=== PATIENT | female | born 1945 | race Two or more races ===

== ENCOUNTER 2025-05-25 20:13 | Emergency (ER) | payer OTHER, MEDICAID ==
[~2025-05-25] VITALS: Ht 162.6 cm; Wt 91.0 kg
[2025-05-25 20:18] VITALS: BP 160/84; RESP 15; TEMP 98.8; O2SAT 99
--- NOTE | 2025-05-25 20:49 | ED.PDOC ---
History of Present Illness HPI Comments 79-year-old female with a history of diabetes brought in by ambulance and accompanied by daughter for the chief complaint of nausea, diarrhea with the associated nonproductive dry cough, epigastric abdominal pain, and mild shortness of breath. Patient states the she had a prior event dentist visit and was prescribed antibiotics and has since felt the onset of her symptoms. EMS noted patient stated she was short of breath, but with sat on 99% rare. Patient denies any vomiting, headache, blurry vision, or any other associated symptoms, modifiers at this time. PHYSICAL EXAM: General: Awake, alert and oriented. No acute distress. Skin: Skin in warm, dry and intact. Appropriate color for ethnicity. HEENT: The head is normocephalic and atraumatic. Conjunctivae are clear without exudates or hemorrhage. Sclera is non-icteric. EOM are intact. No signs of nystagmus. Eyelids are normal in appearance without swelling or lesions. Oral mucosa is pink and moist Neck: The neck is supple with normal range of motion. No JVD. Cardiac: Heart rate and rhythm are normal. No murmurs, gallops, or rubs are auscultated. Respiratory: No signs of respiratory distress. Lung sounds are clear in all lobes bilaterally without rales, rhonchi, or wheezes. Abdominal: Abdomen is soft, Bowel sounds are present and normoactive in all four quadrants. Tenderness to palpitation to epigastric region. Extremities: Upper and lower extremities are atraumatic in appearance without deformity or edema. Neurological: The patient is awake, alert and oriented to person, place, and time with normal speech. Speech is clear. There is no facial asymmetry. Psychiatric: Appropriate mood and affect. Good judgement and insight. REVIEW OF SYSTEMS: General: No fever, no chills, or fatigue HEENT: No sore throat, no earache, no congestion, no neck pain. Cardiac: No chest pain. No palpitations. Lungs: Cough, shortness of breath GI: + nausea, no vomiting, + diarrhea, no constipation, abdominal pain : No dysuria, frequency, or urgency. No hematuria. Musculoskeletal: No joint pain , no joint swelling, no extremity edema. Skin: No rash, no itching. Neuro: No headache, no dizziness, no weakness Chief Complaint: Flu like Time Seen by MD: 20:45 Reviewed Notes: Nurses Notes, Raw Stock Machine Loader Notes, Medications, Allergies Allergies: Coded Allergies: Codeine (Verified Allergy, Unknown, 05/25/25) Gabapentin (Verified Allergy, Unknown, 05/25/25) Morphine (Verified Allergy, Unknown, 05/25/25) Penicillins (Verified Allergy, Unknown, 05/25/25) Information Source: Patient, Emergency Med Personnel Mode of Arrival: EMS Severity: Moderate Timing: Days Duration: Intermittent, Days Prehospital treatment: 12 Lead EKG, Accucheck, Surface Grinder Tender Was a procedure done? Was a procedure done?: No EKG EKG : Pulse Rate (adult): 84 [place]: Normal Cardiac Rhythm: NSR Block: None Hypertrophy: None ST: Normal Differential Dx Considerations may include: Differential diagnoses considered include: Abdominal aortic aneurysm, NC, esophageal rupture, intestinal obstruction, mesenteric ischemia, perforated viscus or solid organ rupture, CHF with hepatomegaly, pneumonia, abscess, appendicitis, biliary disease, diverticulitis, gastritis, gastroenteritis, hepatitis, hernia, inflammatory bowel disease, pancreatitis, peptic ulcer disease, urinary tract infection, ureteral colic, constipation, GERD, irritable syndrome, abdominal wall pain, nonspecific abdominal pain, herpes zoster, nephrolithiasis. X-Ray, Labs, Meds, VS Vital Signs Date Time Temp Pulse Resp B/P (MAP) Pulse Ox O2 Delivery O2 Flow Rate FiO2 05/25/25 21:09 84 05/25/25 20:18 98.8 84 15 160/84 99 98.8 Lab Test 05/25/25 21:30 05/25/25 21:19 Range/Units Influenza Type A Antigen Negative Negative Influenza Type B Antigen Negative Negative SARS-CoV-2 Antigen (Rapid) Positive NEGATIVE White Blood Count 8.1 4.4-10.8 10^3/uL Red Blood Count 4.71 4.0-5.20 10^6/uL Hemoglobin 14.1 12.2-16.2 g/dL Hematocrit 40.9 36.0-46.0 % Mean Corpuscular Volume 87.0 80.0-100.0 fL Mean Corpuscular Hemoglobin 30.0 28.0-32.0 pg Mean Corpuscular Hemoglobin Concent 34.5 32.0-36.0 g/dL Red Cell Distribution Width 14.1 11.8-14.3 % Platelet Count 427 140-450 10^3/uL Mean Platelet Volume 7.4 6.9-10.8 fL Neutrophils (%) (Auto) 60.0 37.0-80.0 % Lymphocytes (%) (Auto) 21.3 10.0-50.0 % Monocytes (%) (Auto) 14.2 H 0.0-12.0 % Eosinophils (%) (Auto) 4.1 0.0-7.0 % Basophils (%) (Auto) 0.4 0.0-2.0 % Neutrophils # (Auto) 4.9 1.6-8.6 10 ^3/uL Lymphocytes # (Auto) 1.7 0.4-5.4 10 ^3/uL Monocytes # (Auto) 1.2 0-1.3 10 ^3/uL Eosinophils # (Auto) 0.3 0-0.8 10 ^3/uL Basophils # (Auto) 0 0-0.2 10 ^3/uL Nucleated Red Blood Cells 0.1 % Sodium Level 128 L 136-145 mmol/L Potassium Level 3.8 3.5-5.1 mmol/L Chloride Level 93 L 98-107 mmol/L Carbon Dioxide Level 27 20-31 mmol/L Anion Gap 8 5-15 Blood Urea Nitrogen 6 L 9-23 mg/dL Creatinine 0.67 0.550-1.02 mg/dL Glomerular Filtration Rate Calc 90 >90 mL/min BUN/Creatinine Ratio 9.0 L 10.0-20.0 Serum Glucose 113 H 74-106 mg/dL Calcium Level 9.0 8.7-10.4 mg/dL Total Bilirubin 0.4 0.2-1.0 mg/dL Aspartate Amino Transferase (AST) 26 13-40 U/L Alanine Aminotransferase (ALT) 27 7-40 U/L Alkaline Phosphatase 128 H 46-116 U/L Troponin I High Sensitivity < 3 L </=34 ng/L Total Protein 6.9 5.7-8.2 g/dL Albumin 4.6 3.2-4.8 g/dL Lipase 63 H 12-53 U/L Time of 1ST Reevaluation: 21:15 Reevaluation 1ST: Unchanged Patient Education/Counseling: Need For Follow Up Family Education/Counseling: Need For Follow Up SEPSIS Sepsis Screen Date sepsis recognized/suspect: May 25, 2025 Time Sepsis recognized/suspect: 2015 Recent Procedure: No On Antibiotic Therapy: Yes Respiratory Rate >20: No Heart Rate >90: No Temp<36 C (96.8 F) or >38.3 C: No SBP <90 or MAP <65 mmHG: No New Acute Mental Status Change: No Is the patient on CPAP, BIPAP,: No Physician Orders Urinalysis (05/25/25 20:44) Saline Lock (05/25/25 23:04) Free Water Restriction (05/25/25 23:05) Vital Signs Date Time Temp Pulse Resp B/P (MAP) Pulse Ox O2 Delivery O2 Flow Rate FiO2 05/25/25 21:09 84 05/25/25 20:18 98.8 84 15 160/84 99 98.8 Laboratory Tests Test 05/25/25 21:19 White Blood Count 8.1 10^3/uL (4.4-10.8) Departure 1 Departure Time of Disposition: 23:05 Impression: Primary Impression: Hyponatremia Disposition: ADMITTED INPATIENT Condition: Stable Critical Care Note Critical Care Time?: No Stability Stability form required: No Heart Score Heart Score: Heart Score Response (Comments) Value History N/A 0 EKG N/A 0 Age N/A 0 Risk Factors N/A 0 Troponin N/A 0 Total 0 I personally scribed for DION FIGUEROA MD ([email or web address]) on 05/25/25 at 20:49. Electronically submitted by Clement Shah ([email or web address]). I personally scribed for DION FIGUEROA MD ([email or web address]) on 05/25/25 at 21:09. Electronically submitted by Clement Shah ([email or web address]). DION FIGUEROA MD May 25, 2025 20:49
[2025-05-25 21:09] VITALS: PULSE 84
[2025-05-25 21:38] LABS: Hematocrit 40.9 % (36.0-46.0); Hemoglobin 14.1 g/dL (12.2-16.2); Mean Corpuscular Hemoglobin 30.0 pg (28.0-32.0); Mean Corpuscular Volume 87.0 fL (80.0-100.0); Nucleated Red Blood Cells % 0.1 %
[2025-05-25 21:55] LABS: Alanine Aminotransferase 27 U/L (7-40); Albumin 4.6 g/dL (3.2-4.8); Anion Gap 8 (5-15); BUN/Creatinine Ratio 9.0 (10.0-20.0); Bilirubin, Total 0.4 mg/dL (0.2-1.0); Calcium 9.0 mg/dL (8.7-10.4); Carbon Dioxide 27 mmol/L (20-31); Potassium 3.8 mmol/L (3.5-5.1); Total Protein 6.9 g/dL (5.7-8.2)
[2025-05-25 21:56] LABS: Alkaline Phosphatase 128 U/L (46-116); Blood Urea Nitrogen 6 mg/dL (9-23); Chloride 93 mmol/L (98-107); Glucose 113 mg/dL (74-106); Lipase 63 U/L (12-53); Sodium 128 mmol/L (136-145)
[2025-05-25 22:55] LABS: COVID19 ANTIGEN SOFIA FIA POSITIVE (NEGATIVE)
--- NOTE | 2025-05-26 03:30 | ECG ---
[facility] Test Date: 2025-05-25 Test Time: 21:06:28 Pat Name: NIDA ESCAMILLA Department: Room: Gender: F Prepress Manager: : [id number] Requested By: DION FIGUEROA Order Number: [id number] Reading MD: Mendel Reed Measurements Intervals [place] Rate: 84 P: 37 FL: 149 QRS: -22 QRSD: 99 T: 26 QT: 377 QTc: 446 Interpretive Statements Sinus rhythm Borderline left axis deviation Low voltage, precordial leads Abnormal R-wave progression, late transition Nonspecific T abnormalities, anterior leads Electronically Signed On 05-31-2025 17:49:37 PDT by Mendel Reed Please click the below link to view image of tracing.
== END 2025-05-26 03:06 | disposition left against medical advice (07) ==
LOC: ER 20:13 → EDBD 20:13 → ER 05-26 03:06
DX: P74.22 Hyponatremia of newborn (principal); Z88.0 Allergy status to penicillin; Z88.5 Allergy status to narcotic agent; Z79.899 Other long term (current) drug therapy; Z20.822 Contact with and (suspected) exposure to COVID-19
CPT/HCPCS: 36415; 80053; 83690; 84484; 85025; 87426; 87804; 93005

== ENCOUNTER 2025-06-10 10:06 | Outpatient (CLI) | payer OTHER, MEDICAID ==
[2025-06-10 10:32] LABS: Hematocrit 37.2 % (36.0-46.0); Hemoglobin 12.5 g/dL (12.2-16.2); Mean Corpuscular Hemoglobin 30.2 pg (28.0-32.0); Mean Corpuscular Volume 89.6 fL (80.0-100.0); Nucleated Red Blood Cells % 0.1 %
[2025-06-10 10:37] LABS: Urine Protein, UAD Negative (Negative)
[2025-06-10 10:52] LABS: Alanine Aminotransferase 13 U/L (7-40); Albumin 4.4 g/dL (3.2-4.8); Alkaline Phosphatase 86 U/L (46-116); Anion Gap 8 (5-15); BUN/Creatinine Ratio 15.7 (10.0-20.0); Bilirubin, Total 0.6 mg/dL (0.2-1.0); Blood Urea Nitrogen 11 mg/dL (9-23); Calcium 9.2 mg/dL (8.7-10.4); Carbon Dioxide 29 mmol/L (20-31); Chloride 102 mmol/L (98-107); Cholesterol 189 mg/dL (< 200); Glucose 106 mg/dL (74-106); HDL Cholesterol 56 mg/dL (40-59); Potassium 4.2 mmol/L (3.5-5.1); Sodium 139 mmol/L (136-145); Total Protein 6.5 g/dL (5.7-8.2); Triglycerides 138 mg/dL (< 150)
[2025-06-10 11:05] LABS: Free T4 (Free Thyroxine) 1.52 ng/dL (0.89-1.76)
== END 2025-06-10 17:00 | disposition home or self-care (01) ==
LOC: LAB 10:06
PROVIDERS: ATTEND Nurse Practitioner Family
DX: I10 Essential (primary) hypertension (principal); E78.5 Hyperlipidemia, unspecified; E55.9 Vitamin D deficiency, unspecified
CPT/HCPCS: 36415; 80053; 80061; 81001; 82607; 83036; 84439; 84443; 85025